=== PATIENT | male | born 1965 | race Caucasian/White ===

== ENCOUNTER 2022-01-24 14:25 | Emergency (ER) | payer MEDICARE, OTHER ==
[2022-01-24 15:06] LABS: BASOPHILS % (AUTO) 0.2 %; EOSINOPHILS # (AUTO) 0.1 10^3/uL (0.0-0.7); EOSINOPHILS % (AUTO) 1.2 %; HCT - HEMATOCRIT 42.2 % (42.0-52.0); LYMPHOCYTES # (AUTO) 0.7 10^3/uL (1.5-3.5); LYMPHOCYTES % (AUTO) 5.6 %; MEAN CORPUSCULAR HEMOGLOBIN 29.4 pg (27.0-31.0); MEAN CORPUSCULAR HGB CONC 33.2 g/dL (32.0-36.0); MEAN CORPUSCULAR VOLUME 88.5 fL (80.0-94.0); MEAN PLATELET VOLUME 9.5 fL (7.4-11.4); MONOCYTES # (AUTO) 0.9 10^3/uL (0.0-1.0); MONOCYTES % (AUTO) 7.6 %; PLT - PLATELET COUNT 198 10^3/uL (130-450); RED BLOOD COUNT 4.77 10^6/uL (4.70-6.10); RED CELL DISTRIBUTION WIDTH 12.6 % (12.0-15.0); WHITE BLOOD COUNT 11.7 x10^3/uL (4.8-10.8)
[2022-01-24 15:20] LABS: ALBUMIN 4.2 g/dL (3.2-5.5); ALBUMIN/GLOBULIN RATIO 1.3 (1.0-2.2); BILIRUBIN,TOTAL 0.7 mg/dL (0.2-1.0); CALCIUM 9.1 mg/dL (8.5-10.3); CREATININE 1.2 mg/dL (0.6-1.2); POTASSIUM 3.9 mmol/L (3.5-5.0); TOTAL PROTEIN 7.4 g/dL (6.7-8.2)
--- NOTE | 2022-01-24 15:23 | XRAY Report ---
PROCEDURE: Chest 1 View X-Ray INDICATIONS: Chest pain TECHNIQUE: One view of the chest was acquired. COMPARISON: None FINDINGS: Surgical changes and devices: None. Lungs and pleura: No pleural effusions or pneumothorax. Lungs are clear. Mediastinum: Mediastinal contours appear normal. Heart size is normal. Bones and chest wall: No suspicious bony lesions. Overlying soft tissues appear unremarkable. IMPRESSION: No acute radiographic abnormality Reviewed by: Theo Ellington MD on 01/24/2022 3:21 PM PDT Approved by: Theo Ellington MD on 01/24/2022 3:21 PM PDT Station ID: [id number]
[2022-01-24] MEDS ORDERED: ALBUTEROL NEB 2.5 MG/3 ML INH STA (16:52)
--- NOTE | 2022-01-24 16:54 | ED Physician Documentation ---
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 Since then his ejection fraction has rebounded to 48%. He presents with about 3 days of cough, headaches, fever to 104 today and some chest pain with coughing. He denies pedal edema or calf pain. No sick contacts. He is visiting here from [facility]. Review of Systems Ten Systems: 10 systems reviewed and negative Constitutional: reports: Fever, Chills, Fatigue Nose: denies: Rhinorrhea / runny nose Throat: denies: Sore throat Respiratory: reports: Dyspnea, Cough PD PAST MEDICAL HISTORY - Present Medications Home Medications: Ambulatory Orders Medication Instructions Recorded Confirmed Albuterol Sulf [Ventolin Hfa 1 - 2 puffs INH Q4HR PRN #1 each 01/24/22 Inhaler] Doxycycline Hyclate 100 mg PO BID #14 cap 01/24/22 guaiFENesin/CODEINE [Robitussin AC] 5 - 10 ml PO Q6H PRN #120 ml 01/24/22 - Allergies Allergies/Adverse Reactions: Allergies Allergy/AdvReac Type Severity Reaction Status Date / Time Sulfa (Sulfonamide Allergy Anaphylaxis Verified 01/24/22 14:37 Antibiotics) PD ED PE NORMAL - Vitals Vital signs reviewed: Yes - General General: Alert and oriented X 3, No acute distress - HEENT HEENT: Pharynx benign - Neck Neck: Supple, no meningeal sign, No bony TTP - Cardiac Cardiac: RRR, No murmur - Respiratory Respiratory: No respiratory distress, Other (Rhonchorous throughout with expiratory wheezing as well.) - Abdomen Abdomen: Non tender - Extremities Extremities: No edema, No calf tenderness / cord - Neuro Neuro: Alert and oriented X 3, Normal speech Results - Vitals Vitals: Vital Signs - 24 hr 01/24/22 01/24/22 01/24/22 14:31 16:50 17:00 Temperature 37.0 C Heart Rate 101 H 101 H 95 Respiratory 20 15 19 Rate Blood Pressure 137/80 H 133/80 H 139/90 H O2 Saturation 95 99 98 01/24/22 01/24/22 17:09 17:30 Temperature Heart Rate 90 120 H Respiratory 16 22 Rate Blood Pressure 127/79 O2 Saturation 94 Oxygen O2 Source Room air - EKG (time done) 1442 Rate: Rate (enter#) (96) Rhythm: NSR [place]: Normal Intervals: Normal MI QRS: Normal Ischemia: Normal ST segments Computer interpretation: Agree with computer - Labs Labs: Laboratory Tests 01/24/22 01/24/22 01/24/22 14:40 15:02 15:02 WBC 11.7 H RBC 4.77 Hgb 14.0 Hct 42.2 MCV 88.5 MCH 29.4 MCHC 33.2 RDW 12.6 Plt Count 198 MPV 9.5 Neut # (Auto) 10.0 H Lymph # (Auto) 0.7 L [place] # (Auto) 0.9 Eos # (Auto) 0.1 Baso # (Auto) 0.0 Absolute Nucleated RBC 0.00 Nucleated RBC % 0.0 Sodium 135 Potassium 3.9 Chloride 103 Carbon Dioxide 24 Anion Gap 8.0 BUN 17 Creatinine 1.2 Estimated GFR (MDRD) 62 L Glucose 128 H Calcium 9.1 Total Bilirubin 0.7 AST 21 ALT 21 Alkaline Phosphatase 59 Troponin I High Sens Total Protein 7.4 Albumin 4.2 Globulin 3.2 Albumin/Globulin Ratio 1.3 Lipase 40 SARS-CoV-2 (PCR) NOT DETECTED 01/24/22 01/24/22 15:02 17:04 WBC RBC Hgb Hct MCV MCH MCHC RDW Plt Count MPV Neut # (Auto) Lymph # (Auto) [place] # (Auto) Eos # (Auto) Baso # (Auto) Absolute Nucleated RBC Nucleated RBC % Sodium Potassium Chloride Carbon Dioxide Anion Gap BUN Creatinine Estimated GFR (MDRD) Glucose Calcium Total Bilirubin AST ALT Alkaline Phosphatase Troponin I High Sens 27.6 H* 24.2 H* Total Protein Albumin Globulin Albumin/Globulin Ratio Lipase SARS-CoV-2 (PCR) PD MEDICAL DECISION MAKING - ED course ED course: 56-year-old gentleman with history of cardiomyopathy that has been stabilized presents with what sounds like a respiratory infection with wheezing and findings consistent with bronchitis. His chest x-ray is unremarkable, as is his EKG. His troponin is very mildly elevated, given his underlying cardiomyopathy this may be a chronic phenomenon we will recheck it here especially in light of a clinical syndrome more consistent with a respiratory infection. Departure - Departure Disposition: 01 Home, Self Care Clinical Impression: Bronchitis Condition: Good Record reviewed to determine appropriate education?: Yes Instructions: ED Upper Resp Infec Abx Tx Prescriptions: Albuterol Sulf [Ventolin Hfa Inhaler] 1 - 2 puffs INH Q4HR PRN #1 each PRN Reason: Shortness Of Air/Wheezing Doxycycline Hyclate 100 mg PO BID #14 cap guaiFENesin/CODEINE [Robitussin AC] 5 - 10 ml PO Q6H PRN #120 ml PRN Reason: Cough Comments: I sent your prescriptions electronically to [facility] in [place]. You are found today to have a normal chest x-ray, negative COVID test, mildly elevated white blood cell count. Your troponin was slightly elevated in the mid 20s but stayed stable over several hours suggesting that that is a chronic phenomenon. Given your underlying issues and the fever I am treating you for bronchitis with antibiotics. I also sent in some codeine cough syrup, do not drink or drive with that. Return for new or worsening symptoms. Follow-up with your doctor after return home.
[2022-01-24 17:39] VITALS: BP 127/79
[2022-01-24] MEDS ORDERED: DOXYCYCLINE 100 MG TABLET PO STA (17:43)
[2022-01-24] MEDS ORDERED: ACETAMINOPHEN 500 MG TABLET PO STA (17:43)
== END 2022-01-24 18:11 | disposition home or self-care (01) ==
LOC: ED 14:25
DX: J40 Bronchitis, not specified as acute or chronic (principal); Z20.822 Contact with and (suspected) exposure to COVID-19
CPT/HCPCS: 36415; 71045; 80053; 83690; 84484; 85025; 87635; 93005; 94640; 94664; 99284; A9270